=== PATIENT | female | born 1975 | race Caucasian/White ===

== ENCOUNTER 2024-11-28 13:45 | Emergency (ER) | payer MEDICAID ==
[~2024-11-28] VITALS: Ht 152.4 cm; Wt 90.0 kg
[2024-11-28 13:47] VITALS: O2SAT 99
[2024-11-28] MEDS: MORPHINE SULFATE 4 MG/ML INJ (FOR IV/IM USE) IV ONE (14:25)
[2024-11-28] MEDS: ONDANSETRON HCL 4MG/2ML INJ IV ONE (14:26)
[2024-11-28 14:36] LABS: BASOPHILS % 0.7 % (0.0-2.0); CHLORIDE 99 mEq/L (98-107); EOSINOPHILS % 0.4 % (0.0-5.0); HEMATOCRIT. 39.8 % (36.0-48.0); HEMOGLOBIN. 13.3 g/dL (12.0-16.0); LYMPHOCYTES % 8.6 % (20.0-50.0); MEAN CORPUSCULAR HEMOGLOBIN 30.5 pg (28.0-32.0); MEAN CORPUSCULAR HGB CONC 33.4 g/dL (31.0-37.0); MEAN CORPUSCULAR VOLUME 91.3 fL (81.0-99.0); MEAN PLATELET VOLUME 7.6 fl (7.4-10.4); MONOCYTES % 7.7 % (2.0-8.0); NEUTROPHILS % 82.6 % (40.0-76.0); PLATELET 343 x1000/uL (130-400); POTASSIUM 3.7 mEq/L (3.5-5.1); RED BLOOD CELL COUNT 4.36 mill/uL (4.2-5.4); RED CELL DISTRIBUTION WIDTH 14.1 % (11.6-14.6); SODIUM 134 mEq/L (136-145); WHITE BLOOD COUNT 16.2 x1000/uL (4.5-11.0)
[2024-11-28 14:37] LABS: CALCIUM 9.4 mg/dL (8.7-10.4); CARBON DIOXIDE 26 mEq/L (21-32)
[2024-11-28 14:42] LABS: CREATININE 0.9 mg/dL (0.6-1.0); GLUCOSE 111 mg/dL (70-105); UREA NITROGEN BLOOD 20 mg/dL (9-23)
[2024-11-28 14:44] LABS: ALANINE AMINOTRANSFERASE 20 IU/L (10-49); ALBUMIN 4.2 g/dL (3.2-4.8); ASPARTATE AMINOTRANSFERASE 25 IU/L (<34); BILIRUBIN TOTAL 1.6 mg/dL (0.1-1.0); PROTEIN TOTAL 8.2 g/dL (6.0-8.3)
[2024-11-28] MEDS: ACETAMINOPHEN 500MG TABLET PO NR (14:55)
[2024-11-28] MEDS: SODIUM CHLORIDE 0.9% 500 ML IV ONE (15:28)
[2024-11-28 16:58] LABS: CLARITY URINE CLEAR (CLEAR); COLOR URINE YELLOW (YELLOW); GLUCOSE URINE NEGATIVE (NEGATIVE); KETONES URINE NEGATIVE (NEGATIVE); LEUKOCYTE ESTERASE URINE NEGATIVE (NEGATIVE); NITRITE URINE NEGATIVE (NEGATIVE); OCCULT BLOOD URINE TRACE (NEGATIVE); PH URINE 6.5 (4.5-8.0); PROTEIN URINE NEGATIVE (NEGATIVE); SPECIFIC GRAVITY URINE 1.021 (1.005-1.030)
[2024-11-28] MEDS: IBUPROFEN 600MG TABLET PO NR (17:00)
[2024-11-28 17:51] LABS: BACTERIA URINE 1+; RBC URINE 0-2 /hpf (0-2); SQUAMOUS EPITHELIAL CELL URINE FEW /lpf (RARE/1+); WBC URINE 0-2 /hpf (0-2)
[2024-11-28] MEDS ORDERED: TRAM50TA3 MT (17:54)
[2024-11-28] MEDS ORDERED: IBUP-2029 MT (17:54)
[2024-11-28] MEDS: SODIUM CHLORIDE 0.9% 1,000 ML IV ONE (18:08)
[2024-11-28 18:40] VITALS: TEMP 37.7
[2024-11-28 20:34] VITALS: BP 112/72; PULSE 85; RESP 18; O2SAT 99
== END 2024-11-28 20:36 | disposition home or self-care (01) ==
LOC: ER 13:45
DX: N20.0 Calculus of kidney (principal)
CPT/HCPCS: 99285; 74176; 96374; 96361; 71045; 96375; 80053; 81003; 85025; 36415; J2405; J2270; J7040